=== PATIENT | male | born 1980 | race Caucasian/White ===

== ENCOUNTER 2016-08-11 16:30 | Emergency (ER) | payer OTHER | END 2016-08-11 18:45 | disposition left against medical advice (07) | LOC: ER1 16:30 | DX: Z53.21 Procedure and treatment not carried out due to patient leaving prior to being seen by health care provider (principal) ==

== ENCOUNTER 2016-08-11 22:24 | Emergency (ER) | payer OTHER | END 2016-08-12 03:00 | disposition home or self-care (01) | LOC: ER1 22:24 | DX: L02.411 Cutaneous abscess of right axilla (principal); F17.210 Nicotine dependence, cigarettes, uncomplicated | CPT/HCPCS: 10061; 87070; 87077; 87186; 87205; 99283 ==